=== PATIENT | male | born 2000 | race Caucasian/White ===

== ENCOUNTER 2024-04-18 08:52 | Outpatient (CLI) | payer OTHER, SELFPAY ==
--- NOTE | 2024-05-07 12:47 | W.PM.SLEEP ---
Sleep Study Details Details Interpreting Provider: Richard Date of Sleep Study: 04/18/24 Sleep Study Details: STUDY TYPE:? Home unattended ? BMI:? 29.6 ORDERING PROVIDER:? Richard INDICATION:? Concerned about sleep apnea ? SLEEP SUMMARY:? 401 minutes monitored RESPIRATORY SUMMARY:? AHI 12.3 Low oxygen 90 Snoring 98.4% PERIODIC LIMB MOVEMENTS OF SLEEP:? Not recorded CARDIAC:? Range 49-104, mean 67.7 beats per minute IMPRESSION:? Mild obstructive sleep apnea RECOMMENDATION: Treatment options include CPAP, dental appliance and/or airway expansion surgery.
== END 2024-04-18 08:53 | disposition home or self-care (01) ==
PROVIDERS: PCP Physician Assistant Medical; Visit Provider Otolaryngology
DX: G47.33 Obstructive sleep apnea (adult) (pediatric) (principal)
CPT/HCPCS: 95806